=== PATIENT | female | born 1975 | race Caucasian/White ===

== ENCOUNTER 2019-11-19 16:58 | Emergency (ER) | payer OTHER, SELFPAY ==
[2019-11-19 17:06] VITALS: BP 129/79; PULSE 118; RESP 18; TEMP 37.3; O2SAT 100
--- NOTE | 2019-11-19 17:10 | ED.NAVMDI ---
HPI - Nausea/Vomiting/Diarrhea General Chief complaint: Nausea/Vomiting/Diarrhea Stated complaint: n/v/d Time Seen by Provider: 11/19/19 17:02 Source: patient Mode of arrival: ambulatory Limitations: no limitations History of Present Illness HPI Narrative: A 44 y/o female presents to the ED with c/o N/V/D. Pt states that the N/V/D started at 0130 today and has been constant since. She notes that she ate at [employer] last night with her and had a cheeseburger and icecream. The patient's adds that he had some diarrhea today. She reports mid-back pain, epigastric ABD pain, dysuria, and chills, but denies bloody stools. Pt states that she started her menstrual cycle this morning and she often gets dysuria before her menstrual cycles. She has no other complaints at this time. MD elicited complaint: nausea, vomiting and diarrhea Onset (ago): hour(s) (16) Associated abdominal pain: Yes Location of pain: epigastric Pain consistency: constant Context: possible food poisoning Associated symptoms: fever/chills, dysuria and other (Mid-back pain, epigastric ABD pain) Related Data Home Medications Medication Instructions Recorded Confirmed bupropion HCl 300 mg PO QAM 11/19/19 famotidine [Pepcid] 20 mg PO BID 11/19/19 11/19/19 ibuprofen 200 mg PO Q6H 11/19/19 11/19/19 Allergies Allergy/AdvReac Type Severity Reaction Status Date / Time Penicillins Allergy Intermediate RASH Verified 11/19/19 17:09 sulfamethoxazole Allergy Intermediate Rash Verified 11/19/19 17:09 [From Bactrim] trimethoprim [From Bactrim] Allergy Intermediate Rash Verified 11/19/19 17:09 mupirocin Allergy Rash Verified 11/19/19 17:09 SHELLFISH Allergy Intermediate Nausea and Uncoded 11/19/19 17:09 Vomiting Review of Systems Review of Systems: Narrative: CONSTITUTIONAL: Denies fever or sweats. Reports chills. EYES: Denies visual changes, redness, or discharge. ENT: Denies rhinorrhea, congestion, sore throat, or otalgia. CARDIOVASCULAR: Denies chest pain, palpitations, or edema. RESPIRATORY: Denies cough or dyspnea. GASTROINTESTINAL: Denies bloody stools. Reports epigastric abdominal pain, nausea, vomiting, and diarrhea. GENITOURINARY: Denies hematuria. Reports dysuria. SKIN: Denies rash or itching. MUSCULOSKELETAL: Denies joint pain or myalgia. Reports mid-back pain. NEUROLOGIC: Denies headache, numbness, or weakness. All systems reviewed & are unremarkable except as noted in HPI and below PMFSH Past Medical History Medical History (Updated 11/19/19 @ 19:01 by Minerva Ng MD) Anemia Depression Eczema Gastritis GERD (gastroesophageal reflux disease) History of blood transfusion Placental abruption UTI (urinary tract infection) Wrist fracture, bilateral Surgical History Surgical History (Updated 11/19/19 @ 17:13 by Evelina Stark) History of section History of cholecystectomy History of lumpectomy of right breast History of tubal ligation Status post cervical polyp removal Social History Social History (Updated 11/19/19 @ 17:13 by Evelina Stark) Smoking status: Former smoker Tobacco type: cigarettes Smoking end date: 09/13/00 Gender identity (if verbalized by the patient): Female Exam Narrative: Exam Narrative: GENERAL: Well-appearing, well-nourished, and in no acute distress. HEAD: Normocephalic, atraumatic. EYES: PERRLA and EOMI. ENT: Nares clear, no rhinorrhea or epistaxis. Mucous membranes moist. NECK: Supple. CHEST: Clear to auscultation. No respiratory distress. HEART: Tachycardic with regular rhythm. No murmur heard. Normal peripheral pulses. ABDOMEN: Soft, mild epigastrictenderness, nondistended, normal active bowel sounds. No flank tenderness. EXTREMITIES: Normal range of motion. No edema. SKIN: Warm, dry, no rash. NEURO: No focal deficits. Alert and oriented X3. Course Course Emergency Course: Patient presented for evaluation of vomiting and diarrhea. At the time of initial assessment, A
[2019-11-19] MEDS: ONDANSETRON INJ 4 MG/2 ML VIAL IV PUSH (17:18)
[2019-11-19] MEDS: SODIUM CHLORIDE 0.9% IV 2,000 ML 999 ML IV CONT (17:18)
[2019-11-19 17:20] LABS: Basophils Percent Auto 0.3 % (0.2-1.2); Eosinophils Percent Auto 0.2 % (0-4.4); Hematocrit 38.9 % (37.0-47.0); Hemoglobin 13.1 g/dL (12.0-15.0); Immature Granulocyte Absolute 0.02 K/mm3 (0.00-0.031); Immature Granulocyte Percent A 0.3 % (0-0.5); Lymphocytes Absolute Auto 0.14 K/mm3 (0.9-3.2); Lymphocytes Percent Auto 2.4 % (18.3-44.2); Mean Corpuscular HGB Conc 33.7 g/dl (32-36); Mean Corpuscular Hemoglobin 30.2 pg (26-34); Mean Corpuscular Volume 89.6 fl (80-100); Mean Platelet Volume 9.8 fl (7.4-10.4); Monocytes Absolute Auto 0.2 K/mm3 (0.1-0.6); Monocytes Percent Auto 2.5 % (2.6-8.5); Neutrophils Absolute Auto 5.6 K/mm3 (1.3-6.7); Neutrophils Percent Auto 94.3 % (45.5-73.1); Platelet Count Result 248 k/mm3 (150-375); Red Blood Count 4.34 M/mm3 (4.2-5.4); Red Cell Distribution Width 12.6 % (11.5-14.5); White Blood Count 5.9 K/mm3 (4.5-10.0)
[2019-11-19 17:26] LABS: Add Urine Microscopic? YES; Appearance Urine Cloudy (Clear); Bacteria Urine Trace /hpf; Bilirubin Urine Negative (Negative); Blood Urine 3+ (Negative); Color Urine Yellow (Yellow); Glucose Urine UA Negative (Negative); Ketones Urine Negative (Negative); Leukocyte Esterase Ur Negative LEU/UL (Negative); Mucus Urine Few /lpf; Nitrate Urine Negative (Negative); Protein Urine Negative (Negative); Specific Grav Ur 1.029 (1.001-1.035); Squamous Epithelial Cell Urine Many /hpf (Few); Urobilinogen Urine Negative mg/dL (<2.0)
[2019-11-19] MEDS: MORPHINE SULFATE 4 MG/ML INJ IV PUSH (17:27)
[2019-11-19 17:31] LABS: Alanine Aminotransferase 20 U/L (4-35); Albumin Level 4.4 g/dL (3.5-5.1); Alkaline Phosphatase 51 U/L (38-126); Aspartate Amino Transferase 23 U/L (14-36); Bilirubin,Total 0.4 mg/dL (0.2-1.3); Blood Urea Nitrogen 19 mg/dL (7-17); Calcium 8.7 mg/dL (8.4-10.2); Carbon Dioxide 22 mmol/L (22-30); Chloride 106 mmol/L (98-107); Estimated CRCL calculation 86 ml/min; Estimated Glomerular Filt Rate > 60; Glucose 152 mg/dL (65-105); Lipase 54 U/L (23-300); Potassium 3.7 mmol/L (3.4-5.0); Sodium 137 mmol/L (137-145)
[2019-11-19 18:00] VITALS: BP 107/65; PULSE 100; RESP 18; O2SAT 98
[2019-11-19 18:58] VITALS: BP 106/73; PULSE 98; RESP 18; O2SAT 100
[2019-11-19 19:21] VITALS: BP 101/70; PULSE 78; RESP 16; O2SAT 100
== END 2019-11-19 19:22 | disposition home or self-care (01) ==
PROVIDERS: Emergency Provider Emergency Medicine; PCP Family Medicine
DX: K52.9 Noninfective gastroenteritis and colitis, unspecified (principal); F32.9 Major depressive disorder, single episode, unspecified; K21.9 Gastro-esophageal reflux disease without esophagitis; Z87.440 Personal history of urinary (tract) infections; Z87.891 Personal history of nicotine dependence; Z86.2 Personal history of diseases of the blood and blood-forming organs and certain disorders involving the immune mechanism
CPT/HCPCS: 36415; 80053; 81001; 81025; 83690; 85025; 96361; 96374; 96375; 99284; J2270; J2405; J7030

== ENCOUNTER → 2020-12-26 07:53 | Outpatient (CLI) | payer OTHER, SELFPAY ==
--- NOTE | ~2020-12-26 | MMUS_ITS ---
EXAMINATION: MM diagnostic giovanny BI w obinna, US breast RT limited HISTORY: Palpable right breast mass TECHNIQUE: Additional 3-D tomosynthesis images of the breasts were performed and synthetic 2-D images were generated. CAD analysis was submitted and interpreted. High resolution Limited right breast ult rasound was performed. COMPARISON: Comparison to multiple prior studies sequentially, with oldest reviewed study dated 03/2018. BREAST PARENCHYMAL COMPOSITION: Breast composed of scattered areas of fibroglandular density. FINDINGS: MAMMOGRAPHIC FINDINGS: There are no suspicious masses, calcifications or architectural distortion in either breast to sugges t malignancy. There is asymmetry in the lower inner quadrant of the right breast which compresses wit h spot views, consistent with superimposed tissue. ULTRASOUND: Limited right breast ultrasound demonstrates normal heterogeneous echotexture in the area of palpable concern at 10:00 without discrete mass. At 5:00, 5 cm from the nipple there is a 3 mm cyst. No suspi cious masses are identified to suggest malignancy. IMPRESSION: 1. No evidence for malignancy in either breast. 2. Routine yearly screening mammogram and regular clinical breast examination are recommended. BI-RADS Category 2: Benign finding(s). Reviewed, dictated and finalized at location A. IMPRESSION: 1. No evidence for malignancy in either breast. 2. Routine yearly screening mammogram and regular clinical breast examination a re recommended. BI-RADS Category 2: Benign finding(s).
== END ==
PROVIDERS: PCP Family Medicine; Visit Provider Family Medicine
DX: N63.10 Unspecified lump in the right breast, unspecified quadrant (principal); N63.20 Unspecified lump in the left breast, unspecified quadrant
CPT/HCPCS: 76642; 77062; 77066; G0279

== ENCOUNTER → 2022-06-11 12:43 | Outpatient (CLI) | payer OTHER, SELFPAY ==
--- NOTE | ~2022-06-11 | MM_ITS ---
EXAMINATION: MM screening giovanny BI w obinna HISTORY: Screening mammogram TECHNIQUE: Craniocaudal and mediolateral oblique 3-D tomosynthesis images were obtained and synthetic 2-D images were generated. CAD analysis was submitted and interpreted. COMPARISON: 12/26/2020 bilateral diagnostic mammogram and limited right breast ultrasound 02/09/2019 diagnostic left mammogram 01/16/2019 bilateral screening mammogram BREAST PARENCHYMAL COMPOSITION: There are scattered areas of fibroglandular density. FINDINGS: Stable fibroglandular asymmetry. There is no evidence of suspicious mass, calcification, or architectural distortion to suggest malignancy in either breast. There has been no suspicious interv al change. IMPRESSION: 1. No mammographic evidence of malignancy. 2. Recommend routine screening mammography in one year. BI-RADS Category 1: Negative Reviewed, dictated and finalized at location A.
== END ==
PROVIDERS: PCP Family Medicine; Visit Provider Family Medicine
DX: Z12.31 Encounter for screening mammogram for malignant neoplasm of breast (principal)
CPT/HCPCS: 77063; 77067